=== PATIENT | male | born 1945 | race African-American/Black ===

== ENCOUNTER 2017-11-08 09:10 | Inpatient (IN) | payer OTHER ==
[~2017-11-08] VITALS: Ht 165.1 cm; Wt 56.3 kg
[2017-11-08] MEDS ORDERED: ALEVE220 M2 PO (10:04)
[2017-11-08 10:35] LABS: HEMATOCRIT 36.9 % (38.0-50.0); HEMOGLOBIN 12.3 G/DL (12.5-16.6); MCH 28.3 PG (29.0-34.0); MCHC 33.3 G/DL (30.0-36.0); PLATELET COUNT 256 K/uL (156-360); RED BLOOD COUNT 4.34 M/uL (4.00-5.50); WHITE BLOOD COUNT 10.1 K/uL (4.1-10.2)
[2017-11-08 10:44] LABS: CHLORIDE 102 mEq/L (99-109); POTASSIUM 4.1 mEq/L (3.7-5.4); SODIUM 136 mEq/L (136-147)
[2017-11-08 10:45] LABS: GLUCOSE 86 mg/dL (70-99)
[2017-11-08 10:49] LABS: CREATININE 0.7 mg/dL (0.6-1.3); GFR ESTIMATE (CALCULATED) > 59 mL/min/ (58.99-99999)
[2017-11-08 10:50] LABS: UREA NITROGEN (BUN) 14 mg/dL (9-23)
[2017-11-08 16:30] VITALS: BP 135/78
[2017-11-09 00:13] VITALS: BP 120/74
[2017-11-09 08:32] VITALS: BP 120/84
[2017-11-09 12:41] LABS: INTER. NORMALIZED RATIO 1.1
[2017-11-09 16:37] VITALS: BP 136/78
[2017-11-09 23:55] VITALS: BP 136/88
[2017-11-10 06:50] LABS: HEMATOCRIT 34.6 % (38.0-50.0); HEMOGLOBIN 11.3 G/DL (12.5-16.6); MCH 27.9 PG (29.0-34.0); MCHC 32.7 G/DL (30.0-36.0); MCV 85.4 FL (86-99); PLATELET COUNT 268 K/uL (156-360); RBC DIS.WIDTH-CV 12.9 % (11.8-14.6); RBC DIS.WIDTH-SD 40.5 % (39-53); RED BLOOD COUNT 4.05 M/uL (4.00-5.50); WHITE BLOOD COUNT 10.4 K/uL (4.1-10.2)
[2017-11-10 08:25] VITALS: BP 144/89
[2017-11-10 16:30] VITALS: BP 155/83
[2017-11-10 23:26] VITALS: BP 144/82
[2017-11-11 07:00] VITALS: BP 133/90
[2017-11-11 17:53] VITALS: BP 140/78
[2017-11-11 20:45] VITALS: BP 133/81
[2017-11-11 23:15] VITALS: BP 134/85
[2017-11-12 06:45] VITALS: BP 136/56
[2017-11-12 08:09] VITALS: BP 136/56
[2017-11-12] MEDS ORDERED: AMOX TR-K CLV1 EAC4 PO (08:46)
[2017-11-12] MEDS ORDERED: ENDOCET 5-3251 EACH PO (08:46)
[2017-11-12] MEDS ORDERED: NICOTINE PATCH1 EAC1 TD (08:46)
[2017-11-12] MEDS ORDERED: PREDNISONE20 MG PO (08:46)
[2017-11-12] MEDS ORDERED: FOLIC ACID1 MG PO (08:46)
[2017-11-12] MEDS ORDERED: SPIRIVA RESPIMAT4 GM IH (08:46)
[2017-11-12] MEDS ORDERED: THIAMINE HCL100 MG PO (08:46)
[2017-11-12] MEDS ORDERED: THERAGRAN1 TABLET PO (08:46)
[2017-11-12] MEDS ORDERED: ADVAIR HFA120 INHALA IH (08:46)
[2017-11-12] MEDS ORDERED: INCRUSE ELLI62.5 MCG IH (11:52)
[2017-11-12] MEDS ORDERED: DULERA 100 MCG/13 GM IH (11:52)
== END 2017-11-12 16:18 | disposition home health service (06) | DRG 180 ==
LOC: EME 09:10 → 5EAST 12:55 → EDOF 12:55 → ENRESERV 13:04 → EDOF 13:21 → ENRESERV 14:05 → 5EAST 16:23
PROVIDERS: Hospitalist; Internal Medicine Pulmonary Disease; Physician Assistant
DX: C34.92 Malignant neoplasm of unspecified part of left bronchus or lung (principal); J18.9 Pneumonia, unspecified organism; R59.1 Generalized enlarged lymph nodes; I10 Essential (primary) hypertension; F10.20 Alcohol dependence, uncomplicated; F12.90 Cannabis use, unspecified, uncomplicated; F17.210 Nicotine dependence, cigarettes, uncomplicated; Z85.51 Personal history of malignant neoplasm of bladder
CPT/HCPCS: 70470; 71260; 80048; 85027; 85610; 85730; 87040; 87070; 87106; 87116; 87205; 87206; 87278; 88108; 93005; 94640; 94640 76; 99202; 99281; 99285; J0295; J1650; J1885; J2175; J2250; J2270; J2550; J2930; J3010; J7030; J7040; J7050; J7512

== ENCOUNTER 2017-11-15 22:17 | Emergency (ER) | payer OTHER ==
[~2017-11-15] VITALS: Ht 165.1 cm; Wt 57.0 kg
[~2017-11-15 22:17] MED LIST: ADVAIR HFA120 INHALA IH; ALEVE220 M2 PO; AMOX TR-K CLV1 EAC4 PO; DULERA 100 MCG/13 GM IH; ENDOCET 5-3251 EACH PO; FOLIC ACID1 MG PO; INCRUSE ELLI62.5 MCG IH; NICOTINE PATCH1 EAC1 TD; PREDNISONE20 MG PO; SPIRIVA RESPIMAT4 GM IH; THERAGRAN1 TABLET PO; THIAMINE HCL100 MG PO
[2017-11-16] MEDS ORDERED: NORCO 5/3251 TABLET PO (00:23)
[2017-11-16 01:17] VITALS: BP 111/88
== END 2017-11-16 01:17 | disposition home or self-care (01) ==
LOC: EME 22:17
DX: R60.0 Localized edema (principal); C34.90 Malignant neoplasm of unspecified part of unspecified bronchus or lung; G89.3 Neoplasm related pain (acute) (chronic); M79.605 Pain in left leg; M54.2 Cervicalgia; Z85.51 Personal history of malignant neoplasm of bladder; F17.200 Nicotine dependence, unspecified, uncomplicated
CPT/HCPCS: 93971; 99281; 99284

== ENCOUNTER → 2017-11-18 | Outpatient (CLI) | payer OTHER ==
[~2017-11-18] MED LIST changes: +NORCO 5/3251 TABLET PO
== END | disposition home or self-care (01) ==
LOC: OPR 08:02 → EDSTATUS 09:00
PROC: 0BBG3ZX Excision of Left Upper Lung Lobe, Percutaneous Approach, Diagnostic (ICD-10-PCS; principal; 2017-11-18)
DX: C34.12 Malignant neoplasm of upper lobe, left bronchus or lung (principal)
CPT/HCPCS: 71045; 77012; 88305; 88341 TC; 88342 TC; J3010